=== PATIENT | female | born 1960 | race Caucasian/White ===

== ENCOUNTER → 2021-09-29 09:54 | Outpatient (CLI) | payer OTHER, SELFPAY ==
--- NOTE | 2021-09-29 | DI.MG.S_ITS ---
UNILATERAL LEFT DIGITAL DIAGNOSTIC MAMMOGRAM 3D/2D WITH ADDITIONAL VIEWS: 09/29/2021 CLINICAL: Additional evaluation requested from prior study. Comparison is made to exams dated: 08/03/2021 mammogram, 12/17/2014 mammogram, and 08/29/2014 mammogram - [facility]. The tissue of left breast is heterogeneously dense. This may lower the sensitivity of mammography. There is a 0.4 cm oval focal asymmetry with an obscured and circumscribed margin in the left breast at 7 o'clock anterior depth. No other significant masses or calcifications are seen in the breast. IMPRESSION: INCOMPLETE: NEEDS ADDITIONAL IMAGING EVALUATION The 0.4 cm oval focal asymmetry in the left breast resembles a cyst and is indeterminate. A targeted ultrasound is recommended and will immediately follow. This exam was interpreted at Station ID: [id number]. NOTE: For mammograms, a report in lay terms will be sent to the patient. Approximately 15% of breast malignancies will not be visualized mammographically. In the management of a palpable breast mass, a negative mammogram must not discourage biopsy of a clinically suspicious lesion. Electronically Signed By: Slade Epstein M.D. slc/:09/29/2021 10:33:44 ACR BI-RADS Category 0: Incomplete 3340F
--- NOTE | 2021-09-29 | DI.US.S_ITS ---
LIMITED ULTRASOUND OF LEFT BREAST: 09/29/2021 CLINICAL: Patient returns today to evaluate a focal asymmetry in the left breast. Comparison is made to exams dated: 09/29/2021 mammogram - [facility] and 08/03/2021 mammogram - [facility]. Color flow and real-time ultrasound of the left breast were performed. Ward scale images of the real-time examination were reviewed. There is a 0.3 cm x 0.3 cm x 0.3 cm round complicated cyst in the left breast at 7 o'clock anterior depth 3 cm from the nipple. This round complicated cyst is hypoechoic with internal echoes and posterior acoustic enhancement. This correlates with mammography findings. Color flow imaging demonstrates that there is no vascularity present. IMPRESSION: PROBABLY BENIGN The 0.3 cm complicated cyst in the left breast is probably benign. A follow-up ultrasound in 6 months is recommended to demonstrate stability. Exam findings were conveyed to the patient. This exam was interpreted at Station ID: [id number]. Electronically Signed By: Slade Epstein M.D. slc/:09/29/2021 11:10:19 letter sent: Followup Recommended Ultrasound BI-RADS: 3 Probably benign
== END ==
PROVIDERS: PCP Physician Assistant; Referring Provider Student in an Organized Health Care Education/Training Program; Visit Provider Student in an Organized Health Care Education/Training Program
DX: R92.8 Other abnormal and inconclusive findings on diagnostic imaging of breast (principal); N60.02 Solitary cyst of left breast
CPT/HCPCS: 76642; 77065; G0279

== ENCOUNTER → 2022-06-10 08:55 | Outpatient (CLI) | payer OTHER, SELFPAY ==
--- NOTE | 2022-06-10 | DI.ECHO.S_ITS ---
[place] [facility]---------+ [facility] +---------+ : : [address] : [place] : : : : [id number] : : : : Phone: [phone]+ Echocardiogram Report + + :Name: LEONIDAS ANDERSON Study Date: 06/10/2022 Height: 68 in : :[facility] ReadingLocation: Weight: 170 lb : : Gender: Female BSA: 1.9 m2 : :: 1960 Age: 61 yrs BP: 112/80 mmHg: :Reason For Study: ATRIAL FIBRILLATION : :Ordering Physician: CANDACE, : :VERONICA Performed By: Violetta Barajas : :Referring: VERONICA MARIA : + + Interpretation Summary 1) Normal left ventricular thickness, size, wall motion, and systolic function (EF 55-60%). 2) Normal right ventricular size with low normal function. 3) No significant valvular abnormalities. 4) The ascending aorta is mild-moderately enlarged at 4.2cm. 5) Compared to the Echo done 05/10/2018, ascending aorta is enlarged on this study. Procedure: A two-dimensional transthoracic echocardiogram with color flow and Doppler was performed. The study quality was technically adequate. Comparison is made with the echocardiogram of 05/10/2018. The patient was in sinus bradycardia with heart rates between 54-65 bpm during the exam. Left Ventricle: The left ventricle is normal in size and wall thickness. The ejection fraction is estimated to be 55-60%. Left ventricular systolic function appears normal without focal wall motion abnormalities. Right Ventricle: The right ventricle is grossly normal size. Right ventricular systolic function is at the lower limits of normal. Atria: The left atrial size is normal. Right atrial size is normal. There is no Doppler evidence for an interatrial shunt. Mitral Valve: The mitral valve is normal in structure and function. There is mild mitral regurgitation. Aortic Valve: The aortic valve is trileaflet. The aortic valve opens well. There is no aortic valve stenosis. No aortic regurgitation is present. Tricuspid Valve: The tricuspid valve is normal in structure and function. There is mild tricuspid regurgitation. The right ventricular systolic pressure is estimated to be at least 26 mmHg based on an estimated right atrial pressure of 3 mm Hg. Pulmonic Valve: The pulmonic valve leaflets are thin and pliable; valve motion is normal. There is mild pulmonic regurgitation. Great Vessels: The aortic root is normal size. The ascending aorta is mild- moderately enlarged. The IVC is of normal diameter and collapses greater than 50% with a sniff. This suggests a low right atrial pressure of 3 mm Hg. Pericardium/ Pleura There is no pericardial effusion. There is no pleural effusion. MMode/2D Measurements & Calculations LVIDd: 5.0 cm LVOT diam: 2.3 cm LVIDs: 3.2 cm Ao root diam: 3.6 cm FS: 36.7 % asc Aorta Diam: 4.2 cm IVSd: 0.91 cm Ao Arch Diam (Prox Trans): 2.9 cm LVPWd: 0.83 cm LV hi. diameter/BSA (cm/m^2): 2.6 LV sys. diameter/BSA (cm/m^2): 1.7 LA A2 area: 22.6 cm2 RA long axis: 4.8 cm LA A4 area: 16.7 cm2 RA area: 16.5 cm2 LA length (vol): 5.2 cm RA vol: 48.2 ml LA vol: 62.2 ml RA : 25.3 ml/m2 LA vol index: 32.6 ml/m2 IVC diam: 1.6 cm RVD1 (basal): 3.5 cm RVD2 (mid): 3.1 cm TAPSE: 1.6 cm Doppler Measurements & Calculations Ao V2 max: 133.3 cm/sec LVOT Max Tyler: 105.1 cm/sec Ao V2 mean: 96.0 cm/sec LV V1 max P.4 mmHg Ao max P.1 mmHg LV V1 VTI: 23.8 cm Ao mean P.0 mmHg CASSIDY(I,D): 3.6 cm2 Ao V2 VTI: 27.4 cm CASSIDY(V,D): 3.3 cm2 sev ratio: 0.87 CASSIDY indexed to BSA (cm^2/m^2): 1.9 MV E max tyler: 81.4 cm/sec TR max tyler: 237.6 cm/sec MV A max tyler: 52.8 cm/sec TR max P.6 mmHg MV E/A: 1.5 PA V2 max: 79.9 cm/sec Med Peak E' Tyler: 7.7 cm/sec PA V2 mean: 56.6 cm/sec E/E' med: 10.5 PA mean P.5 mmHg Lat Peak E' Tyler: 9.7 cm/sec PA pr(Accel): 27.6 mmHg E/E' lat: 8.4 E/e' average: 9.4 MV dec time: 0.19 sec SV(LVOT): 98.7 ml Reading Physician:02:40 PM
== END ==
PROVIDERS: PCP Family Medicine; Referring Provider Internal Medicine Cardiovascular Disease; Visit Provider Internal Medicine Cardiovascular Disease
DX: I48.0 Paroxysmal atrial fibrillation (principal); I08.1 Rheumatic disorders of both mitral and tricuspid valves; I77.89 Other specified disorders of arteries and arterioles
CPT/HCPCS: 93306

== ENCOUNTER → 2022-06-13 10:25 | Outpatient (CLI) | payer OTHER, SELFPAY ==
--- NOTE | 2022-06-13 | DI.US.S_ITS ---
LIMITED ULTRASOUND OF LEFT BREAST: 06/13/2022 CLINICAL: Patient returns for a 6 month follow up of the left breast. Comparison is made to exams dated: 09/29/2021 ultrasound and 09/29/2021 mammogram - [facility]. Color flow ultrasound of the left breast 7 o'clock region was performed. Ward scale images of the real-time examination were reviewed. There is a 0.4 cm x 0.6 cm x 0.3 cm oval cyst in the left breast at 7 o'clock anterior depth 3 cm from the nipple. This oval cyst is hypoechoic with a well-defined boundary and posterior acoustic enhancement. This abnormality is increased in size and correlates with prior ultrasound findings. Color flow imaging demonstrates that there is no vascularity present. IMPRESSION: PROBABLY BENIGN The 0.6 cm oval cyst in the left breast most likely is a complicated cyst and is probably benign. A follow-up left ultrasound in 6 months is recommended to demonstrate stability. The patient will be due for bilateral mammograms at that same visit. Findings and recommendations were conveyed to the patient at time of exam. This exam was interpreted at Station ID: [id number]. Electronically Signed By: Vicenta sellers/:06/13/2022 12:37:06 letter sent: Followup Recommended Ultrasound BI-RADS: 3 Probably benign
== END ==
PROVIDERS: PCP Family Medicine; Referring Provider Family Medicine; Visit Provider Family Medicine
DX: R92.8 Other abnormal and inconclusive findings on diagnostic imaging of breast (principal); N60.02 Solitary cyst of left breast
CPT/HCPCS: 76642

== ENCOUNTER → 2023-08-29 12:27 | Outpatient (CLI) | payer OTHER, SELFPAY ==
--- NOTE | 2023-08-29 13:04 | DI.ECHO.S_ITS ---
Version 3 [place] +---------+ Hospital : : [address] : : [place] : : [id number] : : Phone: [phone] Echocardiogram Report + + :Name: LEONIDAS LAWSON Study Date: 08/29/2023 Height: 68 in : :[facility] ReadingLocation: Weight: 177 lb : : Gender: Female BSA: 1.9 m2 : :: 1960 Age: 63 yrs BP: 133/89 mmHg: :Reason For Study: THORACIC AORTIC ECTASIA : :Ordering Physician: CANDACE, : :VERONICA Performed By: Violetta Barajas : :Referring: VERONICA MARIA : + + Interpretation Summary The left ventricle is normal in size. The left ventricular ejection fraction is normal. The ejection fraction is estimated to be 55-60%. The right ventricle is normal in size and function. There is moderate mitral regurgitation. There is moderate tricuspid regurgitation. The right ventricular systolic pressure is estimated to be at least 24 mmHg based on an estimated right atrial pressure of 3 mm Hg. The ascending aorta is mild-moderately enlarged. 4.1 cm in diameter. Procedure: A two-dimensional transthoracic echocardiogram with color flow and Doppler was performed. The study quality was technically adequate. Comparison is made with the echocardiogram of 06/10/2022. The patient was in sinus bradycardia with heart rates between 55-64 bpm during the exam. Left Ventricle: Proximal septal thickening is noted. The left ventricle is normal in size. There has been no significant change since the previous study. There is no thrombus. The ejection fraction is estimated to be 55-60%. The left ventricular ejection fraction is normal. There are no focal wall motion abnormalities. MV E/A: 1.1 Med Peak E' Tyler: 6.7 cm/sec E/E' med: 9.7. Right Ventricle: The right ventricle is normal in size and function. Atria: The left atrial size is normal. Right atrial size is normal. There is no Doppler evidence for an interatrial shunt. Mitral Valve: There is mild mitral annular calcification. There is moderate mitral regurgitation. Aortic Valve: The aortic valve is trileaflet. The aortic valve opens well. There is no aortic valve stenosis. No aortic regurgitation is present. Tricuspid Valve: There is moderate tricuspid regurgitation. The right ventricular systolic pressure is estimated to be at least 24 mmHg based on an estimated right atrial pressure of 3 mm Hg. Pulmonic Valve: The pulmonic valve leaflets are thin and pliable; valve motion is normal. There is mild pulmonic regurgitation. Great Vessels: The aortic root is normal size. The ascending aorta is mildmoderately enlarged. The IVC is of normal diameter and collapses greater than 50% with a sniff. This suggests a low right atrial pressure of 3 mm Hg. Pericardium/ Pleura There is no pericardial effusion. There is no pleural effusion. MMode/2D Measurements & Calculations LVIDd: 5.0 cm LVOT diam: 2.1 cm LVIDs: 3.4 cm Ao root diam: 3.4 cm FS: 32.1 % asc Aorta Diam: 4.1 cm IVSd: 0.98 cm Ao Arch Diam (Prox Trans): 3.2 cm LVPWd: 0.88 cm LV hi. diameter/BSA (cm/m^2): 2.6 LV sys. diameter/BSA (cm/m^2): 1.7 LA A2 area: 21.2 cm2 RA long axis: 5.2 cm LA A4 area: 16.3 cm2 RA area: 16.7 cm2 LA length (vol): 5.0 cm RA vol: 45.3 ml LA vol: 58.4 ml RA : 23.3 ml/m2 LA vol index: 30.1 ml/m2 IVC diam: 1.9 cm RVD1 (basal): 3.6 cm RVD2 (mid): 3.2 cm TAPSE: 2.1 cm Doppler Measurements & Calculations Ao V2 max: 123.9 cm/sec LVOT Max Tyler: 106.3 cm/sec Ao V2 mean: 90.2 cm/sec LV V1 max P.5 mmHg Ao max P.1 mmHg LV V1 VTI: 22.1 cm Ao mean P.5 mmHg CASSDIY(I,D): 2.9 cm2 Ao V2 VTI: 27.1 cm CASSIDY(V,D): 3.0 cm2 sev ratio: 0.81 CASSIDY indexed to BSA (cm^2/m^2): 1.5 MV E max tyler: 65.0 cm/sec TR max tyler: 230.2 cm/sec MV A max tyler: 57.6 cm/sec TR max P.2 mmHg MV E/A: 1.1 PA V2 max: 82.4 cm/sec Med Peak E' Tyler: 6.7 cm/sec PA V2 mean: 56.7 cm/sec E/E' med: 9.7 PA mean P.4 mmHg Lat Peak E' Tyler: 7.8 cm/sec PA pr(Accel): 8.8 mmHg E/E' lat: 8.3 E/e' average: 9.0 MV dec time: 0.24 sec SV(OT): 78.3 ml Reading Physician:09:32 AM
== END ==
PROVIDERS: PCP Family Medicine; Referring Provider Internal Medicine Cardiovascular Disease; Visit Provider Internal Medicine Cardiovascular Disease
DX: I08.1 Rheumatic disorders of both mitral and tricuspid valves (principal); I77.810 Thoracic aortic ectasia; I77.89 Other specified disorders of arteries and arterioles
CPT/HCPCS: 93306

== ENCOUNTER → 2024-08-30 12:11 | Outpatient (CLI) | payer MEDICARE, SELFPAY ==
--- NOTE | 2024-08-30 12:13 | DI.ECHO.S_ITS ---
[place] +---------+ Hospital : : [address] : : [place] : : [id number] : : Phone: [phone] Echocardiogram Report + + :Name: LEONIDAS LAWSON Study Date: 08/30/2024 Height: 68 in : :[facility] ReadingLocation: Weight: 168 lb : : Gender: Female BSA: 1.9 m2 : :: 1960 Age: 64 yrs BP: 115/76 mmHg: :Reason For Study: ASCENDING AORTA DILATATION : :Ordering Physician: CANDY, : :ANN Lackey Performed By: Michael Mendiola : :Referring: ANN GUPTA W : + + Interpretation Summary Normal LV size. The ejection fraction is estimated to be 60-65%. Previous LVEF 55 to 60%. The right ventricle is normal in size and function. There is moderate mitral regurgitation. Compared to the prior echo study, there has been no change in the severity of mitral regurgitation. There is moderate tricuspid regurgitation. Compared to the prior echo exam, there has been no change in TR severity. The right ventricular systolic pressure is estimated to be at least 29 mmHg based on an estimated right atrial pressure of 3 mm Hg. The ascending aorta is mild-moderately enlarged. 4.1 cm in diameter. Previous, ascending aorta diameter 4.1 cm as well. Procedure: A two-dimensional transthoracic echocardiogram with color flow and Doppler was performed. The study quality was technically good. Comparison is made with the echocardiogram of 08/29/2023. The patient was in normal sinus rhythm during the exam. Left Ventricle: The left ventricle is normal in size. Left ventricular wall thickness is mildly increased. There is no thrombus. The ejection fraction is estimated to be 60-65%. The left ventricular ejection fraction is normal. There are no focal wall motion abnormalities. MV E/A: 1.4 Med Peak E' Tyler: 5.1 cm/sec E/E' med: 13.7. Right Ventricle: The right ventricle is normal in size and function. Atria: The left atrium is mildly dilated. Right atrial size is normal. There is no Doppler evidence for an interatrial shunt. Mitral Valve: There is mild mitral annular calcification. There is moderate mitral regurgitation. Compared to the prior echo study, there has been no change in the severity of mitral regurgitation. Aortic Valve: The aortic valve is trileaflet. The aortic valve opens well. There is no aortic valve stenosis. No aortic regurgitation is present. Tricuspid Valve: The tricuspid valve is normal. There is moderate tricuspid regurgitation. The right ventricular systolic pressure is estimated to be at least 29 mmHg based on an estimated right atrial pressure of 3 mm Hg. Compared to the prior echo exam, there has been no change in TR severity. Pulmonic Valve: The pulmonic valve leaflets are thin and pliable; valve motion is normal. There is mild pulmonic regurgitation. Great Vessels: The aortic root is normal size. The ascending aorta is mild- moderately enlarged. The pulmonary artery is normal size. The IVC is of normal diameter and collapses greater than 50% with a sniff. This suggests a low right atrial pressure of 3 mm Hg. Pericardium/ Pleura There is no pericardial effusion. There is no pleural effusion. MMode/2D Measurements & Calculations LVIDd: 4.3 cm LVOT diam: 1.9 cm LVIDs: 3.1 cm Ao root diam: 3.6 cm FS: 27.2 % asc Aorta Diam: 4.1 cm EPSS: 0.55 cm Ao Arch Diam (Prox Trans): 2.1 cm IVSd: 1.2 cm LVPWd: 1.2 cm LV hi. diameter/BSA (cm/m^2): 2.3 LV sys. diameter/BSA (cm/m^2): 1.6 LA A2 area: 20.1 cm2 RA long axis: 4.0 cm LA A4 area: 20.3 cm2 RA area: 13.8 cm2 LA length (vol): 5.6 cm RA vol: 40.1 ml LA vol: 61.7 ml RA : 21.1 ml/m2 LA vol index: 32.5 ml/m2 IVC diam: 1.9 cm RVD1 (basal): 3.8 cm RVD2 (mid): 2.8 cm TAPSE: 2.3 cm Doppler Measurements & Calculations Ao V2 max: 128.1 cm/sec LVOT Max Tyler: 94.0 cm/sec Ao V2 mean: 84.7 cm/sec LV V1 max P.5 mmHg Ao max P.6 mmHg LV V1 VTI: 20.9 cm Ao mean P.3 mmHg CASSIDY(I,D): 2.4 cm2 Ao V2 VTI: 24.8 cm CASSIDY(V,D): 2.1 cm2 sev ratio: 0.84 CASSIDY indexed to BSA (cm^2/m^2): 1.3 MV E max tyler: 70.0 cm/sec TR max tyler: 255.1 cm/sec MV A max tyler: 51.3 cm/sec TR max P.0 mmHg MV E/A: 1.4 PA V2 max: 102.6 cm/sec Med Peak E' Tyler: 5.1 cm/sec PA V2 mean: 68.0 cm/sec E/E' med: 13.7 PA mean P.1 mmHg Lat Peak E' Tyler: 8.7 cm/sec PA pr(Accel): 56.7 mmHg E/E' lat: 8.0 E/e' average: 10.9 MV dec time: 0.20 sec SV(LVOT): 58.9 ml Reading Physician:12:44 PM
== END ==
PROVIDERS: PCP Family Medicine; Referring Provider Nurse Practitioner; Visit Provider Nurse Practitioner
DX: I77.810 Thoracic aortic ectasia (principal); I08.1 Rheumatic disorders of both mitral and tricuspid valves; I77.89 Other specified disorders of arteries and arterioles
CPT/HCPCS: 93306